=== PATIENT | male | born 1995 | race Caucasian/White ===

== ENCOUNTER 2022-10-13 08:22 | Emergency (ER) | payer OTHER ==
[~2022-10-13] VITALS: Ht 177.8 cm; Wt 102.7 kg
[2022-10-13 08:31] VITALS: TEMP 98.3
[2022-10-13 09:30] VITALS: BP 129/79; PULSE 77
[2022-10-13] MEDS ORDERED: ZOFRAN ODT4 MG PO (09:32)
== END 2022-10-13 09:44 | disposition home or self-care (01) ==
LOC: COL.ER 08:22
DX: S06.0X0A Concussion without loss of consciousness, initial encounter (principal); Z28.310 Unvaccinated for COVID-19; W01.198A Fall on same level from slipping, tripping and stumbling with subsequent striking against other object, initial encounter

== ENCOUNTER 2023-12-06 04:40 | Emergency (ER) | payer OTHER ==
[~2023-12-06] VITALS: Ht 170.2 cm; Wt 102.3 kg
[~2023-12-06 04:40] MED LIST: ZOFRAN ODT4 MG PO
[2023-12-06 04:50] VITALS: TEMP 98.7
[2023-12-06] MEDS ORDERED: NS 1,000 ML IV ONE (05:00)
[2023-12-06] MEDS ORDERED: fentaNYL 50 MCG/ML 2 ML VIAL IV ONE (05:00)
[2023-12-06] MEDS ORDERED: Ketorolac 30 MG/ML VIAL IV ONE (05:00)
[2023-12-06] MEDS ORDERED: Hyoscyamine 0.125 MG Sublingual TAB SL ONE (05:00)
[2023-12-06 05:05] LABS: BASO % 0.4 % (0.0-2.0); EOS # 0.2 K/mm3 (0.0-0.7); EOS % 1.7 % (0.0-4.0); GRAN # 4.8 K/mm3 (1.4-6.5); GRAN % 52.8 % (42.2-75.2); HEMATOCRIT 51.9 % (42.0-52.0); LYMPH # 3.3 K/mm3 (1.2-3.4); LYMPH % 36.1 % (20.0-51.0); MEAN CELL VOLUME 88 fl (80.0-100.0); MEAN CORPUSCULAR HEMOGLOBIN 31 pg (27-31); MEAN CORPUSCULAR HGB CONC 36 g/dl (33.0-37.0); MEAN PLATELET VOLUME 9.7 fl (7.4-10.4); MONO # 0.8 K/mm3 (0.1-0.6); MONO % 8.8 % (1.7-9.3); PLATELET COUNT 204 K/mm3 (130-400); RED BLOOD COUNT 5.91 M/mm3 (4.20-5.60)
[2023-12-06 05:13] LABS: HEMOGLOBIN 18.4 g/dl (13.5-18.0)
[2023-12-06] MEDS ORDERED: Iohexol 300 - 100 ML VIAL IV ONE (05:33)
[2023-12-06] MEDS ORDERED: NS 50 ML IV ONE (05:34)
[2023-12-06 05:38] LABS: ALBUMIN 4.5 g/dL (3.5-5.0); BILIRUBIN,TOTAL 1.1 mg/dL (0.2-1.2); C-REACTIVE PROTEIN 0.02 mg/dL (0.00-0.50); CREATININE, serum 1.24 mg/dL (0.72-1.25); MAGNESIUM 2.2 mg/dL (1.6-2.6); POTASSIUM 4.2 mEq/L (3.5-4.5); TOTAL PROTEIN 7.4 g/dl (6.2-8.1)
[2023-12-06] MEDS ORDERED: dexAMETHasone 10 MG/ML VIAL IV ONE (06:00)
[2023-12-06] MEDS ORDERED: diphenhydrAMINE 50 MG/ML 1 ML VIAL IV ONE (06:00)
[2023-12-06 06:24] VITALS: BP 126/75
[2023-12-06 07:24] LABS: COLLECTION METHOD CLEAN CATCH
[2023-12-06 07:29] LABS: PH 7.5 (5.0-8.5); URINE APPEARANCE CLEAR (CLEAR/HAZY); URINE BLOOD NEGATIVE (NEGATIVE); URINE COLOR YELLOW (YELLOW); URINE GLUCOSE NEGATIVE (NEGATIVE); URINE KETONE NEGATIVE (NEGATIVE); URINE NITRATE NEGATIVE (NEGATIVE); URINE PROTEIN(semi-quant) NEGATIVE (NEGATIVE)
[2023-12-06 07:54] VITALS: PULSE 89
== END 2023-12-06 07:54 | disposition home or self-care (01) ==
LOC: COL.ER 04:40
PROVIDERS: Emergency Medicine
DX: K59.00 Constipation, unspecified (principal); Z79.84 Long term (current) use of oral hypoglycemic drugs
CPT/HCPCS: J1100; J1200; J1885; J3010; J7030; Q9967